=== PATIENT | female | born 1985 | race Two or more races ===

== ENCOUNTER 2023-05-02 22:04 | Observation (INO) ==
[2023-05-02 22:39] LABS: ABS Lymphocytes 1.2 10^3/uL (1.0-4.8); ABS Monocytes 0.5 10^3/uL (0.0-0.9); ABS Neutrophils 10.1 10^3/uL (1.5-7.6); Hematocrit 41.8 % (35-45); Hemoglobin 14.1 g/dL (11.5-14.3); Lymphocyte % 10.3 %; Mean Corpuscular Hemoglobin 30.1 pg (27-33); Mean Corpuscular Hgb Conc 33.7 g/dL (31-36); Mean Corpuscular Volume 89.4 fL (80-97); Mean Platelet Volume 9.4 fL (7.5-11.2); Platelet Count 265 10^3/uL (150-450); Red Blood Count 4.68 10^6/uL (3.63-4.92); Red Cell Distribution Width 14.1 % (12-17); White Blood Count 11.9 10^3/uL (3.8-11.8)
[2023-05-02] MEDS ORDERED: Ondansetron 4 mg VIAL 2 MG/ML 2 ml VIAL IV ONE (22:57)
[2023-05-02 22:58] LABS: Albumin 4.6 g/dL (3.2-5.2); Albumin/Globulin Ratio 1.4 (1-3); CRP High Sensitivity 1.95 mg/L (<2.00); Calcium 10.1 mg/dL (8.6-10.3); Creatinine, Serum 0.97 mg/dL (0.51-0.95); Globulin 3.2 g/dL (2-4); Magnesium 1.7 mg/dL (1.9-2.7); Potassium 3.5 mmol/L (3.5-5.0); Total Bilirubin 0.9 mg/dL (0.2-1.0); Total Protein 7.8 g/dL (6.4-8.9); eGFR CKD-EPI 76.7 (>60)
[2023-05-02] MEDS ORDERED: Morphine 2 MG/ML SYRINGE IV ONE (23:00)
[2023-05-02] MEDS ORDERED: Metoclopramide 5 MG/ML VIAL (10 mg) IV ONE (23:29)
[2023-05-02] MEDS ORDERED: Lactated Ringers 1000 ml BAG 1,000 ML IV SCH (23:45)
[2023-05-03] MEDS ORDERED: Metoclopramide 5 MG/ML VIAL (10 mg) IV ONE (00:06)
[2023-05-03] MEDS ORDERED: Acetaminophen IV 1 GM/100ML 1,000 MG/100 ML BAG IV ONE ×2 (00:06→00:19)
[2023-05-03 01:38] LABS: Body Fluid Source Cerebral Spinal
[2023-05-03 02:10] LABS: CSF Glucose 63 mg/dL (40-70)
[2023-05-03 03:39] LABS: Body Fluid Appearance Clear; Body Fluid Color Colorless
[2023-05-03 03:40] LABS: CSF Body Fluid WBC 256 /mcL; CSF Tube # 4
[2023-05-03] MEDS ORDERED: cefTRIAXone 2 GM ADDV.VIAL 2 GM in NS 0.9% 100 ml BAG 100 ML IV ONE (03:44)
[2023-05-03] MEDS ORDERED: Dexamethasone IV 4 MG/ML VIAL 1 ml VIAL IV SLOW PU ONE (03:51)
[2023-05-03 03:56] LABS: Body Fluid Total Cells Counted 200
[2023-05-03 03:57] LABS: Body Fluid Mono 8 %
[2023-05-03] MEDS ORDERED: Vancomycin 1,000 MG in NS 0.9% 250 ml 250 ML IVPB ONE (04:00)
[2023-05-03] MEDS ORDERED: cefTRIAXone 2 gm/50 mL D5W 2 GM/50 ML BAG IV ONE (04:00)
[2023-05-03] MEDS ORDERED: Acyclovir IV 520 MG in NS 0.9% 100 ml BAG 100 ML IVPB ONE (04:30)
[2023-05-03] MEDS ORDERED: Magnesium Sulfate 2 gm BAG 2 GM/50 ML BAG IVPB ONE ×2 (04:37→07:50)
[2023-05-03] MEDS ORDERED: Ondansetron 4 mg VIAL 2 MG/ML 2 ml VIAL IV PRN (06:21)
[2023-05-03] MEDS ORDERED: Dextrose 50% Syringe 50 ml 25 GM/50 ML SYRINGE IV PUSH PRN (06:28)
[2023-05-03] MEDS ORDERED: Magnesium Sulfate IV 1GM/100ML 1 GM/100 ML BAG IV ONE (06:37)
[2023-05-03] MEDS ORDERED: Enoxaparin 40 MG/0.4 ML SYR SUBCUT SCH (07:00)
[2023-05-03] MEDS: Enoxaparin 40 MG/0.4 ML SYR SUBCUT SCH (08:04)
[2023-05-03] MEDS ORDERED: Acyclovir IV 520 MG in NS 0.9% 100 ml BAG 100 ML IVPB SCH (14:00)
[2023-05-03] MEDS: Lidocaine PATCH 5% PATCH TRANSDERM SCH (14:30)
[2023-05-03] MEDS ORDERED: cefTRIAXone 2 gm/50 mL D5W 2 GM/50 ML BAG IV SCH (17:00)
[2023-05-03] MEDS: Acyclovir IV 520 MG in NS 0.9% 100 ml BAG 100 ML IVPB SCH (22:15)
[2023-05-04] MEDS: Acyclovir IV 520 MG in NS 0.9% 100 ml BAG 100 ML IVPB SCH ×3 (05:26→22:22)
[2023-05-04 05:57] LABS: ABS Lymphocytes 2.6 10^3/uL (1.0-4.8); ABS Monocytes 0.7 10^3/uL (0.0-0.9); ABS Neutrophils 7.7 10^3/uL (1.5-7.6); ABS Nucleated RBC 0.01 10^3/ul; Eosinophil % 0.1 %; Hematocrit 35.5 % (35-45); Hemoglobin 11.8 g/dL (11.5-14.3); Lymphocyte % 23.6 %; Mean Corpuscular Hemoglobin 29.9 pg (27-33); Mean Corpuscular Hgb Conc 33.2 g/dL (31-36); Mean Platelet Volume 9.7 fL (7.5-11.2); Nucleated Red Blood Cells % 0.1 %/100WBC (0.0-0.8); Platelet Count 209 10^3/uL (150-450); Red Blood Count 3.94 10^6/uL (3.63-4.92); Red Cell Distribution Width 14.1 % (12-17); White Blood Count 11.1 10^3/uL (3.8-11.8)
[2023-05-04 06:34] LABS: Calcium 9.2 mg/dL (8.6-10.3); Creatinine, Serum 0.91 mg/dL (0.51-0.95); Magnesium 2.1 mg/dL (1.9-2.7); Potassium 3.6 mmol/L (3.5-5.0); eGFR CKD-EPI 82.8 (>60)
[2023-05-04] MEDS: Enoxaparin 40 MG/0.4 ML SYR SUBCUT SCH (07:56)
[2023-05-04] MEDS: Lidocaine PATCH 5% PATCH TRANSDERM SCH (14:20)
[2023-05-04] MEDS ORDERED: Senna TAB 8.6 mg TAB PO PRN (23:04)
[2023-05-05] MEDS: Acyclovir IV 520 MG in NS 0.9% 100 ml BAG 100 ML IVPB SCH (05:45)
[2023-05-05 06:59] LABS: ABS Eosinophils 0.1 10^3/uL (0.0-0.5); ABS Lymphocytes 3.3 10^3/uL (1.0-4.8); ABS Monocytes 0.5 10^3/uL (0.0-0.9); ABS Neutrophils 4.5 10^3/uL (1.5-7.6); ABS Nucleated RBC 0.02 10^3/ul; Eosinophil % 0.7 %; Hematocrit 36.6 % (35-45); Hemoglobin 12.3 g/dL (11.5-14.3); Lymphocyte % 39.4 %; Mean Corpuscular Hemoglobin 30.2 pg (27-33); Mean Corpuscular Hgb Conc 33.5 g/dL (31-36); Mean Corpuscular Volume 90.2 fL (80-97); Mean Platelet Volume 9.8 fL (7.5-11.2); Nucleated Red Blood Cells % 0.2 %/100WBC (0.0-0.8); Platelet Count 205 10^3/uL (150-450); Red Blood Count 4.06 10^6/uL (3.63-4.92); Red Cell Distribution Width 13.9 % (12-17); White Blood Count 8.4 10^3/uL (3.8-11.8)
[2023-05-05 07:19] LABS: Calcium 9.2 mg/dL (8.6-10.3); Creatinine, Serum 0.89 mg/dL (0.51-0.95); Potassium 3.3 mmol/L (3.5-5.0); eGFR CKD-EPI 85.1 (>60)
[2023-05-05] MEDS ORDERED: Potassium Chlor 20 meq TAB.ER PO ONE (07:43)
[2023-05-05] MEDS: Enoxaparin 40 MG/0.4 ML SYR SUBCUT SCH (09:51)
[2023-05-05] MEDS: Lidocaine PATCH 5% PATCH TRANSDERM SCH (09:57)
[2023-05-05 13:20] VITALS: BP 122/87
[2023-05-05 18:33] LABS: HSV 1 PCR, CSF Negative (Negative); HSV 2 PCR, CSF Positive (Negative)
[2023-05-05 22:18] LABS: B. burgdorferi PCR Negative (Negative); B. garinii/B. afzellii PCR Negative (Negative); Lyme Disease Source CSF
== END 2023-05-05 13:45 | disposition home or self-care (01) ==
LOC: EDHOLD 22:04 → ED 22:04 → MED 05-03 06:21 → SUATTDRO 05-03 06:21 → MED 05-03 08:33
PROVIDERS: ADMIT Internal Medicine; ATTEND Student in an Organized Health Care Education/Training Program